=== PATIENT | male | born 1995 | race Caucasian/White ===

== ENCOUNTER 2016-04-29 19:46 | Emergency (ER) | payer BC, OTHER ==
[~2016-04-29] VITALS: Ht 175.3 cm; Wt 74.9 kg
[~2016-04-29 19:46] MED LIST: GUAI100L PO; MELA1TAB54 PO
[2016-04-29 19:48] VITALS: TEMP 36.5; Ht 175.3 cm; Wt 74.9 kg
[2016-04-29 20:36] LABS: URINE APPEARANCE CLEAR (CLEAR); URINE BILIRUBIN NEG (NEG); URINE COLOR YELLOW; URINE EPITHELIAL CELL AUTO 0-5 /lpf (0-5); URINE NITRITE NEG (NEG); URINE PH 7.5 (4.5-7.5); URINE SPECIFIC GRAVITY 1.008 (1.000-1.030); UROBILINOGEN NEG (NEG)
[2016-04-29 20:37] LABS: MANUAL MICROSCOPIC REQUIRED? NO; REVIEW REQ? NO
--- NOTE | 2016-04-29 20:56 | DIAGNOSTIC IMAGING REPORT ---
TESTICULAR ULTRASOUND HISTORY: Pain Bilateral testicular pain COMPARISON: None. FINDINGS: Right testis: Maximum dimension 5.3 cm. Normal vascular flow Left testis: Maximum dimension 5.3 cm. Normal vascular flow IMPRESSION: Normal testicular ultrasound. Electronically signed by: Rogelio Canas M.D. 04/29/2016 8:55 PM Dictated Date/Time: 04/29/2016 8:54 PM
[2016-04-29] MEDS ORDERED: DOXYCYCLINE HYCLATE 100 MG CAP PO STA (21:19)
[2016-04-29] MEDS ORDERED: DOXY100C PO (21:23)
[2016-04-29 21:32] VITALS: BP 135/96; PULSE 74; O2SAT 97
--- NOTE | 2016-04-29 23:49 | EMERGENCY ROOM VISIT NOTE ---
History First contact with patient: 19:53 Chief Complaint: TESTICULAR PAIN Stated Complaint: TESTICULAR PAIN Nursing Triage Summary: bilateral testicular pain History of Present Illness The patient is a 20 year old male who presents to the Emergency Room with complaints of bilateral testicular pain that started less than 48 hours ago. The patient reports that he did notice some burning with urination that morning , but that since has resolved. The patient's girlfriend is with him. They do report being sexually active, usually without condom use. Neither the patient nor the girlfriend reports any concerns or prior history of STI. The patient has not noticed any additional urethral drainage. He did notice a little area of swelling in the left upper scrotal region. He denies any significant pelvic pain, difficulty urinating, abdominal pain, testicular/scrotal swelling or rectal pain. He currently rates his discomfort a 2 out of 10. Review of Systems 10 system review was performed and was negative except for pertinent positives and negatives as indicated in history of present illness Past Medical/Surgical History Medical Problems: (1) Attn Deficit W Hyperact (2) Hypothyroidism Nos (3) Tonsillectomy and adenoidectomy Family History FH: cancer FH: heart disease FH: hypertension Social History Smoking Status: Never Smoker Alcohol Use: none Drug Use: none Marital Status: single Housing Status: lives with family Occupation Status: student Current/Historical Medications Scheduled Doxycycline Hyclate (Vibramycin), 100 MG PO BID Allergies Coded Allergies: No Known Allergies (Unverified , 04/29/16) Physical Exam Vital Signs Date Time Temp Pulse Resp B/P Pulse Ox O2 Delivery O2 Flow Rate FiO2 04/29/16 21:32 74 16 135/96 97 04/29/16 21:27 74 16 135/96 97 Room Air 04/29/16 19:48 36.5 101 18 99 Room Air Physical Exam CONSTITUTIONAL: Healthy and well nourished. Alert and oriented X 3 with positive affect. Patient does not appear in any acute distress. HEENT: Normocephalic, atraumatic. Pupils equal, round and reactive. No scleral icterus or conjunctival injection. NECK: Full active range of motion without discomfort. RESPIRATORY: Clear to auscultation bilaterally with no wheezing, crackles, rhonchi or stridor. CARDIOVASCULAR: Regular rate and rhythm with no murmurs, rubs or gallops. GASTROINTESTINAL: Bowel sounds present in all quadrants. Abdomen is soft and nontender to palpation. GENITOURINARY: Examination shows a normal penis without any erythematous or vesicular lesions. No urethral erythema or drainage noted. Further examination shows no scrotal erythema, edema or palpable masses, especially in the left upper testicular/scrotal region. No testicular masses noted. No posterior epididymal fullness or bag of worms. Testicles appear normal orientation. MUSCULOSKELETAL: Full range of motion of all joints without discomfort. INTEGUMENTARY: No rash or other significant dermatologic conditions noted. NEUROLOGIC: No focal neurologic deficits noted. Medical Decision & Procedures ER Provider Diagnostic Interpretation: Testicular ultrasound does not show any evidence for scrotal masses, epididymitis or evidence for testicular torsion. Radiologist report is as follows: TESTICULAR ULTRASOUND HISTORY: Pain Bilateral testicular pain COMPARISON: None. FINDINGS: Right testis: Maximum dimension 5.3 cm. Normal vascular flow Left testis: Maximum dimension 5.3 cm. Normal vascular flow IMPRESSION: Normal testicular ultrasound. Laboratory Results Test 04/29/16 20:05 04/29/16 20:10 Urine Color YELLOW Urine Appearance CLEAR (CLEAR) Urine pH 7.5 (4.5-7.5) Urine Specific [place] 1.008 (1.000-1.030) Urine Protein NEG (NEG) Urine Glucose (UA) NEG (NEG) Urine Ketones NEG (NEG) Urine Occult Blood NEG (NEG) Urine Nitrite NEG (NEG) Urine Bilirubin NEG (NEG) Urine Urobilinogen NEG (NEG) Urine Leukocyte Esterase NEG (NEG) Urine WBC (Auto) 0 /hpf (0-5) Urine RBC (Auto) 0-4 /hpf (0-4) Urine Hyaline Casts (Auto) 0 /lpf (0-5) Urine Epithelial Cells (Auto) 0-5 /lpf (0-5) Urine Bacteria (Auto) NEG (NEG) Urinalysis is unremarkable. Urethral swabs were collected for GC and chlamydia testing. Medications Administered Medications (Trade) Dose Ordered Sig/Zahira Route Start Time Stop Time Status Last Admin Dose Admin Doxycycline Hyclate (Vibramycin Cap) 200 mg NOW STAT PO 04/29/16 21:19 04/29/16 21:21 DC 04/29/16 21:26 200 MG ED Course Patient history and physical exam were performed. Nurse's notes were reviewed. Vital signs were reviewed and were normal. Testicular ultrasound was normal. I did collect urethral swabs for GC and chlamydia testing. The patient was advised that his symptoms could be secondary to urethritis. Both the patient and girlfriend again do not feel that they are at risk for an STI, therefore I will defer STI treatment. I did elect to treat the patient with doxycycline 100 mg twice a day 14 days. The patient was advised that we will contact him with any positive gonorrhea or Chlamydia cultures. If he is positive, he was encouraged to return to the emergency department with his girlfriend for further IM Rocephin and Zithromax treatment regimen. Alternatively, they may follow up with her family doctor if they have the capability of administering IM Rocephin in the office. The patient was also encouraged intermittently apply ice and were negative except for for additional relief. Return to the emergency department for any significantly worsening pain, abdominal pain, rectal pain or fever. The patient was happy with plan of care, voice understanding of all discharge instructions, and rated his discomfort a 2 out of 10 at the time of discharge, mostly from his urethral swab. Medical Decision See previous section. The patient presents with complaint of bilateral testicular pain. His ultrasound is unremarkable. No testicular torsion was noted. No epididymitis appreciated on ultrasound. Urinalysis is not suggestive of infection. Urethritis or STI are strong possibilities. Impression Primary Impression: Bilateral testicular pain Departure Information Prescriptions Doxycycline Hyclate (VIBRAMYCIN) 100 Mg Cap 100 MG PO BID for 14 Days, #28 CAP Prov: Brendan Hartman PA 04/29/16 Referrals Jordy Davenport M.D. (PCP) Patient Instructions My [facility]
[2016-05-02 03:42] LABS: CHLAMYDIA TRACH RNA*** NOT DETECTED (NOT DETECTED); GC (NEIS GONORRHOEAE)RNA** NOT DETECTED (NOT DETECTED)
== END 2016-04-29 21:34 | disposition home or self-care (01) ==
LOC: C.EDB 19:47 → C.EDA 21:34
DX: N50.811 Right testicular pain (principal); N50.812 Left testicular pain; R30.0 Dysuria; F90.9 Attention-deficit hyperactivity disorder, unspecified type; E03.9 Hypothyroidism, unspecified

== ENCOUNTER 2016-06-06 19:31 | Emergency (ER) | payer OTHER ==
[~2016-06-06] VITALS: Ht 175.3 cm; Wt 69.4 kg
[2016-06-06 19:38] VITALS: TEMP 36.9; Ht 175.3 cm; Wt 69.4 kg
[2016-06-06] MEDS ORDERED: DOXY100C2 PO (20:04)
[2016-06-06 20:13] LABS: URINE APPEARANCE CLEAR (CLEAR); URINE COLOR DK YELLOW; URINE NITRITE NEG (NEG); URINE PH 5.5 (4.5-7.5); URINE SPECIFIC GRAVITY 1.032 (1.000-1.030); UROBILINOGEN NEG (NEG); ZZUR CULT IF INDIC CLEAN CATCH NO
[2016-06-06 20:17] LABS: BASO % 0.2 %; BASO ABS # 0.02 K/uL (0-0.2); COMPLETE YES; EOS % 0.8 %; HEMATOCRIT 43.4 % (42-52); IG% 0.1 %; LYMPH % 32.3 %; LYMPH ABS # 2.81 K/uL (1.2-3.4); MEAN CELL VOLUME 86.6 fL (80-100); MEAN CORPUSCULAR HEMOGLOBIN 32.3 pg (25-34); MEAN CORPUSCULAR HGB CONC 37.3 g/dl (32-36); MEAN PLATELET VOLUME 9.9 fL (7.4-10.4); MONO % 7.1 %; NEUT % 59.5 %; PLATELET COUNT 227 K/uL (130-400); RED BLOOD COUNT 5.01 M/uL (4.7-6.1); WHITE BLOOD COUNT 8.69 K/uL (4.8-10.8)
[2016-06-06 20:19] LABS: MANUAL MICROSCOPIC REQUIRED? NO; REVIEW REQ? NO
[2016-06-06 20:20] LABS: URINE BILIRUBIN NEG (NEG)
[2016-06-06 20:34] LABS: BUN/CREATININE RATIO 12.4 (10-20); CALCIUM 9.1 mg/dl (8.5-10.1); POTASSIUM 3.7 mmol/L (3.5-5.1)
--- NOTE | 2016-06-06 20:47 | EMERGENCY ROOM VISIT NOTE ---
History Report prepared by Negrita: Paul Merino Under the Supervision of: Dr. Melissa Pak D.O. First contact with patient: 19:46 Chief Complaint: URINARY SYMPTOMS Stated Complaint: PAIN URINATING,CONSTIPATION,LOW BACK PAIN History of Present Illness The patient is a 20 year old male who presents to the Emergency Room with complaints of persistent pain with urination that began one week prior to arrival. The patient was seen in the emergency department one month ago with swollen testicles. At this visit the patient's urine and STD tests all resulted negative. He was given a prescription of Doxycycline, which he took one dosage of and stopped. The patient's testicles began to swell again one week ago, but have now returned to normal. He is now complaining of difficulty beginning to void, and pain while urinating. When he is done urinating he can feel pain in his testicles. He also notes some lower back pain which is worse with movement. He denies any penile discharge, or recent trauma. The patient is sexually active , but only with one partner. He started taking his Doxycycline prescription again yesterday, and has taken 3 doses at this point. Patient also notes that he has been having hard stools which looked like "rabbit turd". Pt denies headache, change in vision, fevers, chest pain, shortness of breath, vomiting, diarrhea, and melena. Source of History: patient Onset: One week [employer] Position: other (Genital) Quality: other (Pain with urination) Timing: other (Persistent) Associated Symptoms: + abdominal pain, + back pain, No fevers Review of Systems See HPI for pertinent positives & negatives. A total of 10 systems reviewed and were otherwise negative. Past Medical & Surgical Medical Problems: (1) Attn Deficit W Hyperact (2) Hypothyroidism Nos (3) Tonsillectomy and adenoidectomy Family History FH: cancer FH: heart disease FH: hypertension Social History Smoking Status: Never Smoker Alcohol Use: none Drug Use: none Marital Status: single Housing Status: lives with family Occupation Status: student Current/Historical Medications Scheduled Doxycycline Hyclate (Vibramycin), 100 MG PO BID Allergies Coded Allergies: No Known Allergies (Unverified , 04/29/16) Physical Exam Vital Signs Date Time Temp Pulse Resp B/P Pulse Ox O2 Delivery O2 Flow Rate FiO2 06/06/16 19:38 36.9 96 20 132/81 99 Room Air Physical Exam GENERAL: Sitting up in bed, well appearing, well nourished, no distress, non- toxic EYE EXAM: normal conjunctiva OROPHARYNX: no exudate, no erythema, lips, buccal mucosa, and tongue normal and mucous membranes are moist NECK: supple, no nuchal rigidity, no adenopathy, non-tender LUNGS: Clear to auscultation. Normal chest wall mechanics HEART: no murmurs, S1 normal and S2 normal ABDOMEN: abdomen soft, non-tender, normo-active bowel sounds, no masses, no rebound or guarding. BACK: Back is symmetrical on inspection and there is no deformity, no midline tenderness, no CVA tenderness. SKIN: no rashes and no bruising UPPER EXTREMITIES: upper extremities are grossly normal. LOWER EXTREMITIES: No pitting edema. NEURO EXAM: Normal sensorium, cranial nerves II-XII grossly intact, normal speech, no gross weakness of arms, no gross weakness of legs. : Normal external genitalia, testicle nontender, no appreciable hernia, cremasteric reflexes intact bilaterally, no penile discharge. Medical Decision & Procedures ER Provider Diagnostic Interpretation: Xray results per the radiologist and my interpretation. Other results have been interpreted by the radiologist and reviewed by me. ULTRASOUND TESTES AND SCROTUM CLINICAL HISTORY: Bilateral testicular pain. COMPARISON STUDY: Scrotal ultrasound dated 04/29/2016. TECHNIQUE: Real-time, grayscale, and color Doppler sonography of the testes and scrotum is performed. Images are reviewed in the transverse and longitudinal planes. FINDINGS: The testes are normal in size and homogeneous in echotexture. The right testis measures 5.4 x 2.5 x 2.7 cm and the left testis measures 5.3 x 2.1 x 3.0 cm. No intratesticular mass is seen. Testicular blood flow is normal and symmetric. Normal Doppler waveforms are identified in both testes. The epididymal heads are normal in appearance. The right epididymal head measures 0.8 cm in length and the left epididymal head measures 0.7 cm in length. No varicocele or hydrocele is seen. IMPRESSION: Unremarkable sonographic assessment of the testes and scrotum. Electronically signed by: Ayaz Rodriguez M.D. 06/06/2016 8:45 PM Dictated Date/Time: 06/06/2016 8:44 PM Laboratory Results 06/06/16 20:06 Red Blood Count 5.01, Mean Corpuscular Volume 86.6, Mean Corpuscular Hemoglobin 32.3, Mean Corpuscular Hemoglobin Concent 37.3, Mean Platelet Volume 9.9, Neutrophils (%) (Auto) 59.5, Lymphocytes (%) (Auto) 32.3, Monocytes (%) (Auto) 7.1, Eosinophils (%) (Auto) 0.8, Basophils (%) (Auto) 0.2, Neutrophils # (Auto) 5.16, Lymphocytes # (Auto) 2.81, Monocytes # (Auto) 0.62, Eosinophils # (Auto) 0.07, Basophils # (Auto) 0.02 06/06/16 20:06 Test 06/06/16 19:51 06/06/16 20:06 Urine Color DK YELLOW Urine Appearance CLEAR (CLEAR) Urine pH 5.5 (4.5-7.5) Urine Specific [place] 1.032 (1.000-1.030) Urine Protein NEG (NEG) Urine Glucose (UA) NEG (NEG) Urine Ketones 1+ (NEG) Urine Occult Blood NEG (NEG) Urine Nitrite NEG (NEG) Urine Bilirubin NEG (NEG) Urine Urobilinogen NEG (NEG) Urine Leukocyte Esterase NEG (NEG) Urine WBC (Auto) 1-5 /hpf (0-5) Urine RBC (Auto) 0-4 /hpf (0-4) Urine Hyaline Casts (Auto) 1-5 /lpf (0-5) Urine Epithelial Cells (Auto) 5-10 /lpf (0-5) Urine Bacteria (Auto) NEG (NEG) White Blood Count 8.69 K/uL (4.8-10.8) Red Blood Count 5.01 M/uL (4.7-6.1) Hemoglobin 16.2 g/dL (14.0-18.0) Hematocrit 43.4 % (42-52) Mean Corpuscular Volume 86.6 fL (80-100) Mean Corpuscular Hemoglobin 32.3 pg (25-34) Mean Corpuscular Hemoglobin Concent 37.3 g/dl (32-36) Platelet Count 227 K/uL (130-400) Mean Platelet Volume 9.9 fL (7.4-10.4) Neutrophils (%) (Auto) 59.5 % Lymphocytes (%) (Auto) 32.3 % Monocytes (%) (Auto) 7.1 % Eosinophils (%) (Auto) 0.8 % Basophils (%) (Auto) 0.2 % Neutrophils # (Auto) 5.16 K/uL (1.4-6.5) Lymphocytes # (Auto) 2.81 K/uL (1.2-3.4) Monocytes # (Auto) 0.62 K/uL (0.11-0.59) Eosinophils # (Auto) 0.07 K/uL (0-0.5) Basophils # (Auto) 0.02 K/uL (0-0.2) RDW Standard Deviation 40.1 fL (36.4-46.3) RDW Coefficient of Variation 12.6 % (11.5-14.5) Immature Granulocyte % (Auto) 0.1 % Immature Granulocyte # (Auto) 0.01 K/uL (0.00-0.02) Anion Gap 12.0 mmol/L (3-11) Est Creatinine Clear Calc Drug Dose 116.6 ml/min Estimated GFR () 125.9 Estimated GFR (Non- 108.6 BUN/Creatinine Ratio 12.4 (10-20) Calcium Level 9.1 mg/dl (8.5-10.1) Total Bilirubin 1.3 mg/dl (0.2-1) Direct Bilirubin 0.4 mg/dl (0-0.2) Aspartate Amino Transf (AST/SGOT) 13 U/L (15-37) Alanine Aminotransferase (ALT/SGPT) 24 U/L (12-78) Alkaline Phosphatase 82 U/L (45-117) Total Protein 7.5 gm/dl (6.4-8.2) Albumin 4.5 gm/dl (3.4-5.0) Lipase 99 U/L (73-393) Laboratory results per my review. ED Course ED COURSE: Vital signs were reviewed and showed Normal Vitals The patients medical record was reviewed The above diagnostic studies were performed and reviewed. ED treatments and interventions as stated above. 1946: The patient was evaluated in room C5. A complete history and physical examination was performed. 2054: Upon reevaluation, the patient is resting in bed.I discussed my findings with the patient and he understands and agrees with the treatment plan. Based on the patients age, coexisting illnesses, exam and lab findings the decision to treat as an outpatient was made. The patient remained stable while under my care. The patient appeared well at the time of discharge. Medical Decision Differential diagnosis includes: sexually transmitted disease, orchitis, epididymidis, torsion, hernia, constipation, and urinary tract infection. Patient is a 20-year-old male who presents the ER for intermittent swelling of his tenderness associated with bilateral pain. He also complains of dysuria. Patient had this month earlier and it resolved and never took any antibiotics. Patient's vitals were unremarkable. He is afebrile. His abdominal exam is completely benign. He had no appreciable abdominal tenderness. He does have lower back pain which was in his lower lumbar spine and was nonreproducible. He notes it was worse with movement and it comes and goes intermittently over the past several weeks. No significant leukocytosis or anemia. BMP was unremarkable. LFTs were normal. Lipase is normal. Direct bili of was elevated slightly at 0.4 and T bili was slightly elevated at 1.3. Again he had no abdominal pain on exam actually no complaints his upper abdomen. UA was negative. GC and chlamydia was pending. Testicular ultrasound was unremarkable. At this time he is completely benign exam. I did recommend continuing the doxycycline as he has only taken 3 doses of this so far. Again There is no signs of torsion, infection or trauma. Bladder scan was remarkable for less than 17 ML's. He is clearly not retaining. Any worsening of his symptoms he should return immediately to the ER. I did also recommend following up with his primary care doctor and urology as an outpatient. Discussed with Pt concerning signs and symptoms to watch out for. Pt was instructed to follow up with their PCP and discussed with the patient their option to return to the ED at anytime for persistent or worsening symptoms. The appropriate anticipatory guidance and out-patient management, including indications for return to the emergency department, were explained at length to the patient and understood. Impression Primary Impression: Testicular pain Additional Impression: Dysuria Scribe Attestation The scribe's documentation has been prepared under my direction and personally reviewed by me in its entirety. I confirm that the note above accurately reflects all work, treatment, procedures, and medical decision making performed by me. Departure Information Dispostion Home / Self-Care Forms HOME CARE DOCUMENTATION FORM, IMPORTANT VISIT INFORMATION Patient Instructions My [facility] Additional Instructions Please follow up with your primary care doctor with in the next 24 hours. Any worsening of your symptoms, please return to the ED immediately. This includes fevers greater than 100.4, persistent nausea vomiting, worsening pain, increased swelling of his testicles, or any other concerning signs or symptoms from your standpoint. Please take antibiotics as previously given to you. Problem Qualifiers
[2016-06-06 20:58] VITALS: BP 150/86; PULSE 97; O2SAT 98
[2016-06-09 01:58] LABS: CHLAMYDIA TRACH RNA*** NOT DETECTED (NOT DETECTED); GC (NEIS GONORRHOEAE)RNA** NOT DETECTED (NOT DETECTED)
== END 2016-06-06 20:58 | disposition home or self-care (01) ==
LOC: C.EDB 19:32 → C.EDC 20:58
DX: N50.811 Right testicular pain (principal); N50.812 Left testicular pain; R30.0 Dysuria; E03.9 Hypothyroidism, unspecified; F90.9 Attention-deficit hyperactivity disorder, unspecified type; Z98.890 Other specified postprocedural states; Z80.9 Family history of malignant neoplasm, unspecified; Z82.49 Family history of ischemic heart disease and other diseases of the circulatory system

== ENCOUNTER → 2016-06-15 | Outpatient (CLI) | payer OTHER ==
[~2016-06-15] MED LIST changes: +DOXY100C2 PO; -GUAI100L PO; -MELA1TAB54 PO
[2016-06-19 18:24] LABS: MUMPS IgG VALUE <0.91; MUMPS VIRUS ANTIBODY IGM <1:20
== END | disposition home or self-care (01) ==
LOC: C.LABBFT 09:26
PROVIDERS: ATTEND Pediatrics
DX: N50.819 Testicular pain, unspecified (principal)

== ENCOUNTER → 2016-07-18 | Outpatient (CLI) | payer OTHER ==
[2016-07-18 19:29] LABS: THYROID STIMULATING HORMONE 3.42 uIu/ml (0.300-4.500)
== END | disposition home or self-care (01) ==
LOC: C.LABBFT 11:45
PROVIDERS: ATTEND Pediatrics
DX: R94.6 Abnormal results of thyroid function studies (principal)